=== PATIENT | male | born 1975 | race Caucasian/White ===

== ENCOUNTER 2021-05-17 19:53 | Emergency (ER) | payer OTHER ==
[2021-05-17] MEDS ORDERED: Ondansetron 4 MG/2 ML SDV IVPUSH ONE (20:40)
[2021-05-17] MEDS ORDERED: Lactated Ringers 1,000 ML IV SCH (20:45)
[2021-05-17] MEDS ORDERED: Sodium Chloride 0.9% 10 ML Syringe FLUSH PRN (21:05)
[2021-05-17 21:08] LABS: CORONAVIRUS COVID-19 NAA NEGATIVE (NEGATIVE)
[2021-05-17] MEDS ORDERED: Prochlorperazine 10 MG/2 ML SDV IVPUSH ONE (22:42)
[2021-05-17] MEDS ORDERED: Lactated Ringers 1,000 ML IV ONE (22:42)
== END 2021-05-18 00:01 | disposition home or self-care (01) ==
LOC: JP.ED 19:53
DX: B34.9 Viral infection, unspecified (principal); Z20.822 Contact with and (suspected) exposure to COVID-19
CPT/HCPCS: 0241U; 36415; 71046; 80053; 83605; 83880; 84484; 85025; 85379; 93005; 96374; 96375; 99284; J0780; J2405; J7120

== ENCOUNTER 2022-08-16 17:55 | Emergency (ER) | payer OTHER ==
[2022-08-16] MEDS ORDERED: Ondansetron 4 MG/2 ML SDV IVPUSH ONE (18:07)
[2022-08-16 18:23] LABS: BASOPHILS ABSOLUTE AUTO 0.11 K/uL (0.00-0.10); BASOPHILS PERCENT AUTO 0.6 % (0.1-1.3); EOSINOPHILS ABSOLUTE AUTO 0.26 K/uL (0.00-0.40); EOSINOPHILS PERCENT AUTO 1.5 % (0.0-5.4); HEMATOCRIT 46.2 % (38.4-49.7); HEMOGLOBIN 15.7 g/dL (12.9-16.9); IMMATURE GRAN ABSOLUTE AUTO 0.12 K/uL (0.00-0.23); IMMATURE GRAN PERCENT AUTO 0.7 % (0.0-0.7); LYMPHOCYTES ABSOLUTE AUTO 4.88 K/uL (0.8-3.3); LYMPHOCYTES PERCENT AUTO 28.7 % (11.4-47.7); MEAN CORPUSCULAR HEMOGLOBIN 30.2 pg (31.6-35.5); MEAN CORPUSCULAR VOLUME 88.8 fL (81.4-99.0); MONOCYTES ABSOLUTE AUTO 1.78 K/uL (0.20-0.90); MONOCYTES PERCENT AUTO 10.5 % (3.3-12.6); NEUTROPHILS ABSOLUTE AUTO 9.85 K/uL (1.0-7.6); PLATELET COUNT,PLT 352 K/uL (130-375)
[2022-08-16] MEDS ORDERED: Sodium Chloride 0.9% 1,000 ML IV SCH (18:30)
[2022-08-16 18:33] LABS: ALANINE AMINOTRANSFERASE,ALT 59 U/L (12-78); ALKALINE PHOSPHATASE 91 U/L (46-116); ASPARTATE AMNIOTRANSFERASE,AST 24 U/L (15-37); BILIRUBIN TOTAL 0.5 mg/dL (0.2-1.0); BLOOD UREA NITROGEN,BUN 19 mg/dL (7-18); CALCIUM 9.2 mg/dL (8.5-10.1); CARBON DIOXIDE,CO2 24 mmol/L (21-32); CHLORIDE,CL 100 mmol/L (100-108); CREATININE 1.4 mg/dL (0.8-1.3); ESTIMATED GFR 63 mL/min (>60); GLUCOSE RANDOM 124 mg/dL (74-106); POTASSIUM,K 3.3 mmol/L (3.6-5.2); PROTEIN TOTAL,TP 8.2 g/dL (6.4-8.2); SODIUM,NA 139 mmol/L (140-148)
[2022-08-16 18:36] LABS: ANION GAP 18.3 mmol/L (5.0-14.0)
[2022-08-16] MEDS ORDERED: Meclizine 25 MG Tab PO ONE (19:14)
== END 2022-08-16 21:16 | disposition home or self-care (01) ==
LOC: JP.ED 17:55
DX: H81.21 Vestibular neuronitis, right ear (principal); I10 Essential (primary) hypertension; Z79.899 Other long term (current) drug therapy
CPT/HCPCS: 36415; 70450; 80053; 85025; 93005; 93010; 96374; 99283; 99284; A9270; J2405